=== PATIENT | male | born 1965 | race Two or more races ===

== ENCOUNTER 2020-09-24 07:37 | Outpatient (CLI) | payer OTHER ==
[~2020-09-24 07:37] MED LIST: GLUCOPHAGE XR500 MG
== END 2020-09-24 07:56 | disposition home or self-care (01) ==
LOC: NUCLEAR 07:37
PROVIDERS: ATTEND Internal Medicine Gastroenterology
DX: K31.84 Gastroparesis (principal)
CPT/HCPCS: 78264; A9541

== ENCOUNTER → 2022-06-24 | Outpatient (CLI) | payer OTHER | END | disposition home or self-care (01) | LOC: NUCLEAR 07:00 | PROVIDERS: ATTEND Internal Medicine Cardiovascular Disease | DX: I20.1 Angina pectoris with documented spasm (principal); Z88.1 Allergy status to other antibiotic agents; Z88.0 Allergy status to penicillin; Z88.8 Allergy status to other drugs, medicaments and biological substances ==

== ENCOUNTER 2023-04-22 12:26 | Outpatient (CLI) | payer OTHER | END 2023-04-22 12:39 | disposition home or self-care (01) | LOC: RAD 12:26 | DX: M54.2 Cervicalgia (principal); M54.6 Pain in thoracic spine; M54.50 Low back pain, unspecified; M25.551 Pain in right hip; M25.552 Pain in left hip ==

== ENCOUNTER 2024-05-11 07:57 | Outpatient (CLI) | payer OTHER | END 2024-05-11 08:04 | disposition home or self-care (01) | LOC: SONOGRAMA 07:57 | PROVIDERS: ATTEND Internal Medicine Gastroenterology | DX: R10.11 Right upper quadrant pain (principal) ==

== ENCOUNTER 2024-05-30 07:32 | Outpatient (CLI) | payer OTHER | END 2024-05-30 07:33 | disposition home or self-care (01) | LOC: NUCLEAR 07:32 | DX: K30 Functional dyspepsia (principal); E11.9 Type 2 diabetes mellitus without complications; Z79.4 Long term (current) use of insulin ==

== ENCOUNTER 2024-12-24 21:35 | Emergency (ER) | payer OTHER ==
[~2024-12-24] VITALS: Ht 180.3 cm; Wt 99.8 kg
[2024-12-24] MEDS ORDERED: COZAAR25 MG (21:41)
[2024-12-24] MEDS ORDERED: HUMALOG100 UNIT/2 (21:41)
[2024-12-24] MEDS ORDERED: LANTUS SOL100 UNIT/1 SQ (21:41)
== END 2024-12-24 22:18 | disposition home or self-care (01) ==
LOC: ER 21:38
DX: R53.81 Other malaise (principal); Z88.1 Allergy status to other antibiotic agents